=== PATIENT | female | born 1995 | race Caucasian/White ===

== ENCOUNTER 2016-09-03 10:40 | Emergency (ER) | payer SELFPAY ==
[2016-09-03] MEDS ORDERED: CLINDAMYCIN 600 MG/D5W RTU 50 ML IV ONE (11:23)
[2016-09-03] MEDS ORDERED: KETOROLAC TROMETHAMINE INJ/PF 30 MG/1 ML SDV IV ONE (11:25)
[2016-09-03] MEDS ORDERED: DEXAMETHASONE SOD PHOS INJ 10 MG/1 ML VIAL IV ONE (11:25)
[2016-09-03] MEDS ORDERED: ONDANSETRON HCL INJ/PF 4 MG/2 ML SDV IV ONE (11:25)
--- NOTE | 2016-09-03 11:36 | ER Document Report ---
ED ENT - General Chief Complaint: Sore Throat Stated Complaint: THROAT PAIN Notes: 20 yo female with sore throat and fever x 2 days, acute swelling of both tonsils this morning. painful to swallow. + muffled voice TRAVEL OUTSIDE OF THE [place] IN LAST 30 DAYS: No - HPI Patient complains to provider of: Throat problem Onset: Yesterday Onset/Duration: Sudden Quality of pain: Achy, Sharp Pain Level: 4 Location of pain: Throat Associated symptoms: Chills, Difficulty swallowing, Fever, Headache, Sore throat. denies: Drooling, Stiff neck Similar symptoms previously: No Recently seen / treated by doctor: No - Related Data Allergies/Adverse Reactions: No Known Allergies Allergy (Verified 08/25/12 15:06) Past Medical History - General Information source: Patient - Social History Smoking Status: Never Smoker Frequency of alcohol use: None Drug Abuse: None Lives with: Family Family History: Reviewed & Not Pertinent Patient has suicidal ideation: No Patient has homicidal ideation: No - Medical History Medical History: Negative Renal/ Medical History: Denies: Hx Peritoneal Dialysis - Immunizations Immunizations up to date: Yes Hx Diphtheria, Pertussis, Tetanus Vaccination: Yes Review of Systems - Review of Systems Constitutional: Fever EENT: See HPI, Throat pain, Throat swelling Cardiovascular: No symptoms reported Respiratory: No symptoms reported Gastrointestinal: No symptoms reported Genitourinary: No symptoms reported Female Genitourinary: No symptoms reported Musculoskeletal: No symptoms reported Skin: No symptoms reported Hematologic/Lymphatic: No symptoms reported Neurological/Psychological: No symptoms reported Physical Exam - Vital signs Vitals: Temp Pulse Resp BP Pulse Ox 99.4 F 115 H 20 134/65 H 98 09/03/16 11:02 09/03/16 11:02 09/03/16 11:02 09/03/16 11:02 09/03/16 11:02 Interpretation: Normal - General General appearance: Alert In distress: Mild - mildly ill looking - HEENT Head: Normocephalic, Atraumatic Eyes: Normal Pupils: PERRL Tympanic membrane: Normal Mucous membranes: Moist Pharynx: Erythema, Tonsillar hypertrophy, Other - + muffled voice, no drooling. No: Uvular edema Neck: Normal, Lymphadenopathy - tonsillar, Supple - Respiratory Respiratory status: No respiratory distress Chest status: Nontender Breath sounds: Normal Chest palpation: Normal - Cardiovascular Rhythm: Regular Heart sounds: Normal auscultation Murmur: No - Abdominal Inspection: Normal Distension: No distension Bowel sounds: Normal Tenderness: Nontender Organomegaly: No organomegaly - Back Back: Normal, Nontender - Extremities General upper extremity: Normal inspection, Nontender, Normal color, Normal ROM , Normal temperature General lower extremity: Normal inspection, Nontender, Normal color, Normal ROM , Normal temperature, Normal weight bearing. No: Roxy's sign - Neurological Neuro grossly intact: Yes Cognition: Normal Orientation: AAOx4 [place] Coma Scale Eye Opening: Spontaneous [place] Coma Scale Verbal: Oriented [place] Coma Scale Motor: Obeys Commands [place] Coma Scale Total: 15 Speech: Normal Motor strength normal: LUE, RUE, LLE, RLE Sensory: Normal - Psychological Associated symptoms: Normal affect, Normal mood - Skin Skin Temperature: Warm Skin Moisture: Dry Skin Color: Normal Course - Re-evaluation Re-evalutation: 09/03/16 11:43 pt evaluated. + tonsillar hypertrophy touching uvula. + muffled voice. no drooling. able to swallow secretions. will get labs and soft tissue neck. will treat for possible peritonsillar abscess. discussed with Dr Miguel. agrees with plan 09/03/16 13:00 rapid strep negative. mono negative. results reviewed with patient pt reports some improvement of pain after meds. slight improvement noted in tonsillar hypertrophy. no drooling. 09/03/16 13:47 CT showing fairly extensive edema, para pharyngitis on the left. + area of low denisity edema tracking inferiorly from the level of the tonsils. + Fluid at the level of the left aspect of the hyoid arlene probably measuring 2cm. Mild thickening of the left area epiglottic fold. Mild narrowing of the airway just abofe the level of the cords. Results reviewed with Dr Miguel. Pt evaluated by Dr Miguel. Recommend ENT consult. [facility] paged. Pt aware of results and plan. 09/03/16 14:[address] Harrington, ENT, [facility]. Agrees to see patient in office tomorrow for further evaluation. Pt is feeling better, able to talk and swallow. no airway compromise. will discharge home with oral antibiotics, pain medication and strict instructions to follow up with ENT tomorrow as discussed. Discussed disposition with Dr Miguel. Agrees with plan. Told patient to return to ER immediately for any difficulty swallowing or breathing. pt agreeable with plan - Vital Signs Vital signs: Temp Pulse Resp BP Pulse Ox 99.4 F 115 H 20 134/65 H 98 09/03/16 11:02 09/03/16 11:02 09/03/16 11:02 09/03/16 11:02 09/03/16 11:02 - Laboratory Result Diagrams: 09/03/16 11:55 Laboratory results interpreted by me: 09/03/16 11:55 WBC 14.6 H Seg Neutrophils % 83.3 H Lymphocytes % 8.9 L Absolute Neutrophils 12.2 H Discharge - Discharge Clinical Impression: Pharyngitis Qualifiers: Pharyngitis/tonsillitis etiology: other specified organisms Qualified Code(s): J02.8 - Acute pharyngitis due to other specified organisms Condition: Stable Disposition: HOME, SELF-CARE Instructions: Sore Throat ([facility]), Denisha-Tonsillar Abscess ([facility]), Oral Narcotic Medication ([facility]), Antibiotic Therapy ([facility]) Additional Instructions: Your CT is showing swelling of your tonsils with a possible abscess Please call ENT tomorrow to schedule follow up. Office number is [phone] [facility] [address] [place] [address] [id number] Harrington regarding your case. Take your meds as prescribed Return immediately to ER for any difficulty swallowing or breathing
[2016-09-03 12:12] LABS: ABSOLUTE BASOPHILS # (AUTO) 0.1 10^3/uL (0.0-0.2); ABSOLUTE LYMPHOCYTES (AUTO) 1.3 10^3/uL (0.5-4.7); ABSOLUTE MONOCYTES (AUTO) 1.1 10^3/uL (0.1-1.4); ABSOLUTE NEUT (AUTO) 12.2 10^3/uL (1.7-8.2); BASOPHILS % (AUTO) 0.4 % (0-2); EOSINOPHILS % (AUTO) 0.1 % (0-6); HEMATOCRIT 42.4 % (36.0-47.0); HEMOGLOBIN 14.3 g/dL (12.0-15.5); HGB HCT DIFFERENCE 0.5; LYMPHOCYTES % (AUTO) 8.9 % (13-45); MEAN CORPUSCULAR HGB CONC 33.8 g/dL (32.0-36.0); MEAN CORPUSCULAR VOLUME 92 fl (80-97); MONOCYTES % (AUTO) 7.3 % (3-13); RED BLOOD COUNT 4.61 10^6/uL (3.72-5.28); RED CELL DISTRIBUTION WIDTH 12.5 % (11.5-14.0); SEGMENTED NEUTROPHILS % (AUTO) 83.3 % (42-78); WHITE BLOOD COUNT 14.6 10^3/uL (4.0-10.5)
[2016-09-03 15:02] VITALS: BP 125/69
== END 2016-09-03 15:00 | disposition home or self-care (01) ==
LOC: ER 10:40
DX: J02.9 Acute pharyngitis, unspecified (principal); J35.1 Hypertrophy of tonsils; R13.10 Dysphagia, unspecified; R50.9 Fever, unspecified; R51 Headache
CPT/HCPCS: 99283; 96375; 96365; 36415; 87070; 87880; 85025; 81025; 86308; 70491; J1885; J2405; J1100

== ENCOUNTER 2018-02-20 17:37 | Inpatient (IN) | payer SELFPAY ==
[2018-02-20 18:25] LABS: APPEARANCE,URINE SLIGHTLY-CLOUDY; BILIRUBIN,URINE NEGATIVE (NEGATIVE); COLOR,URINE YELLOW; GLUCOSE, URINE NEGATIVE (NEGATIVE); KETONES,URINE NEGATIVE (NEGATIVE); LEUKOCYTE ESTERASE,URINE MODERATE (NEGATIVE); NITRITE,URINE NEGATIVE (NEGATIVE); PROTEIN,URINE NEGATIVE (NEGATIVE); URINE SPECIFIC GRAVITY 1.009; UROBILINOGEN,URINE NEGATIVE mg/dL (<2.0)
[2018-02-20] MEDS ORDERED: EPHEDRINE SULFATE INJ 50 MG/1 ML AMPULE ONE (18:26)
[2018-02-20] MEDS ORDERED: OXYTOCIN 10 UNIT/ML VIAL ONE (18:26)
[2018-02-20] MEDS ORDERED: MISOPROSTOL 0.2 MG TABLET ONE (18:26)
[2018-02-20] MEDS ORDERED: PENICILLIN G-K 5 MILLION UNIT VIAL ONE ×2 (18:27→22:30)
[2018-02-20] MEDS ORDERED: OXYTOCIN/NORMAL SALINE 20 UNIT/1,000 ML RTUINJ ONE (18:27)
[2018-02-20] MEDS ORDERED: FENTANYL/BUPIVACAINE/NS/PF 300 MCG/150 ML RTUINJ EPI ONE (18:27)
[2018-02-20] MEDS ORDERED: LIDOCAINE 1% INJ-PF (10 MG/ML) 30 ML SDV ONE (18:27)
[2018-02-20 18:37] LABS: ABSOLUTE EOSINOPHILS # (AUTO) 0.1 10^3/uL (0.0-0.6); ABSOLUTE LYMPHOCYTES (AUTO) 2.1 10^3/uL (0.5-4.7); ABSOLUTE MONOCYTES (AUTO) 0.7 10^3/uL (0.1-1.4); ABSOLUTE NEUT (AUTO) 5.5 10^3/uL (1.7-8.2); BASOPHILS % (AUTO) 0.4 % (0-2); EOSINOPHILS % (AUTO) 1.1 % (0-6); HEMATOCRIT 32.6 % (36.0-47.0); HEMOGLOBIN 10.8 g/dL (12.0-15.5); LYMPHOCYTES % (AUTO) 24.9 % (13-45); MEAN CORPUSCULAR HEMOGLOBIN 29.1 pg (27.0-33.4); MEAN CORPUSCULAR VOLUME 88 fl (80-97); MONOCYTES % (AUTO) 8.7 % (3-13); PLATELET COUNT 217 10^3/uL (150-450); RED BLOOD COUNT 3.69 10^6/uL (3.72-5.28); RED CELL DISTRIBUTION WIDTH 14.9 % (11.5-14.0); SEGMENTED NEUTROPHILS % (AUTO) 64.9 % (42-78); TOTAL CELLS COUNTED % (AUTO) 100 %; WHITE BLOOD COUNT 8.4 10^3/uL (4.0-10.5)
[2018-02-20] MEDS ORDERED: BUPIVACAINE HCL 0.5 % INJ/PF 30 ML SDV ONE (18:37)
[2018-02-20 18:47] LABS: URINE AMPHETAMINES SCREEN NEGATIVE; URINE BARBITURATES SCREEN NEGATIVE; URINE BENZODIAZEPINES SCREEN NEGATIVE; URINE COCAINE SCREEN NEGATIVE; URINE MARIJUANA (THC) SCREEN NEGATIVE; URINE METHADONE SCREEN NEGATIVE; URINE PHENCYCLIDINE SCREEN NEGATIVE
[2018-02-20 20:11] LABS: RUBELLA INTERPRETATION POSITIVE
[2018-02-20 20:29] LABS: CHLAM PCR NOT DETECTED (NOT DETECT); GON PCR NOT DETECTED (NOT DETECT)
[2018-02-20] MEDS ORDERED: OXYTOCIN/NORMAL SALINE 20 UNIT/1,000 ML RTUINJ IV PRN (21:40)
--- NOTE | 2018-02-20 22:19 | Admission Physical ---
Datetime Report Generated by CPN: 02/20/2018 22:19 CURRENT ADMISSION Chief Complaint: Uterine Contractions Indication for Induction: Not Applicable Admit Impression : Term, Intrauterine Admit Plan: Initiate Labor Protocol ALLERGIES Medication Allergies: No Medication Allergies: No Known Allergies (08/25/2012) Latex: No Latex Allergies OBSTETRICAL HISTORY EDC: 02/20/2018 00:00 : 1 Para: 0 Term: 0 : 0 SAB: 0 IAB: 0 Ectopic: 0 Livin Cesareans: 0 VBACs: 0 Multiple Births: 0 Gestational Diabetes: No Rh Sensitization: No Incompetent Cervix: No MAHIN: No Infertility: No ART Treatment: No Uterine Anomaly: No IUGR: No Hx Previous C/S: No Macrosomia: No Hx Loss/Stillborn: No PIH: No Hx : No Placenta Previa/Abruption: No Depression/PP Depression: Yes PTL/PROM: No Post Hemorrhage: No Obstetrical History Comments: G1- current SEE RECORDS Alcohol: No Marijuana : No Cocaine: No Other Illicit Drugs: No Cigarettes: Never Smoker. [id number] MEDICAL HISTORY Diabetes: No Blood Transfusion: No Pulmonary Disease (Asthma, TB): No Breast Disease: No Hypertension: No Classified Ad Clerk Surgery: No Heart Disease: No Hosp/Surgery: Yes Autoimmune Disorder: No Anesthetic Complications: No Kidney Disease: No Abnormal Pap Smear: No Neuro/Epilepsy: No Psychiatric Disorders: Yes Other Medical Diseases: No Hepatitis/Liver Disease: No Significant Family History: No Varicosities/Phlebitis: No Trauma/Violence : No Thyroid Dysfunction: No Medical History Comments: attepted suicide 2016 INFECTIOUS HISTORY Gonorrhea: No Genital Herpes: No Chlamydia: No Tuberculosis: No Syphilis: No Hepatitis: No HIV/AIDS Exposure: No Rash or Viral Illness: No HPV: No PHYSICAL EXAM General: Normal HEENT: Normal Neurologic: Normal Thyroid: Normal Heart: Normal Lungs: Normal Breast: Deferred Back: Normal Abdomen: Normal Genitourinary Exam: Normal Extremities: Normal DTRs: Normal Pelvic Type: Adequate VAGINAL EXAM Dilatation: 5cm FETUS A EGA: 40.0 PLANS FOR LABOR AND DELIVERY Labor and Delivery: None Pain Management: Epidural Feeding Preference: Both Benefit of Breast Feed Discussed: Yes Circumcision: N/A INFORMED CONSENT Signature: with User ID: [email or web address]
[2018-02-21] MEDS ORDERED: NA PHOS,M-B/NA PHOS,DI-BA (ADULT) 133 ML ENEMA PR PRN (00:37)
[2018-02-21] MEDS ORDERED: DIBUCAINE 1% OINTMENT 28 GM TP PRN (00:37)
[2018-02-21] MEDS ORDERED: DIPHENHYDRAMINE HCL 25 MG CAPSULE PO PRN (00:37)
[2018-02-21] MEDS ORDERED: ACETAMINOPHEN WITH CODEINE #3 TABLET PO PRN ×2 (00:37→15:54)
[2018-02-21] MEDS ORDERED: MEASLES,MUMPS&RUBELLA VACC/PF 0.5 ML VIAL SUBCUT PRN ×2 (00:37→13:30)
[2018-02-21] MEDS ORDERED: ACETAMINOPHEN 650 MG SUPP.RECT PR PRN (00:37)
[2018-02-21] MEDS ORDERED: PROMETHAZINE HCL INJ 25 MG/1 ML VIAL IV PRN ×2 (00:37→13:30)
[2018-02-21] MEDS ORDERED: MAGNESIUM HYDROXIDE SUSP 30 ML UDCUP PO PRN (00:37)
[2018-02-21] MEDS ORDERED: BENZOCAINE/MENTHOL AEROSOL SPRAY 56 ML TOP PRN (00:37)
[2018-02-21] MEDS ORDERED: GLYCERIN/WITCH HAZEL LEAF 1 EACH MED..PAD TP PRN (00:37)
[2018-02-21] MEDS ORDERED: DIPH/PERTUSS(ACELL)/TETANUS VAC/PF 0.5 ML SYR (>=10YO) IM PRN ×2 (00:37→13:30)
[2018-02-21] MEDS ORDERED: PROMETHAZINE HCL 25 MG TABLET PO PRN (00:37)
[2018-02-21] MEDS ORDERED: OXYTOCIN/NORMAL SALINE 20 UNIT/1,000 ML RTUINJ IV PRN (00:37)
[2018-02-21] MEDS ORDERED: ZOLPIDEM TARTRATE 5 MG TABLET PO PRN (00:37)
[2018-02-21] MEDS ORDERED: PSEUDOEPHEDRINE HCL 30 MG TABLET PO PRN (00:37)
[2018-02-21] MEDS ORDERED: PROMETHAZINE HCL 25 MG SUPP.RECT PR PRN (00:37)
--- NOTE | 2018-02-21 03:15 | Delivery Summary ---
Del Sum A-C Datetime Report Generated by CPN: 02/21/2018 03:14 DELIVERY PERSONNEL DELIVERY PERSONNEL: [id number] Delivery Doctor:: Ruben Perez MD Labor and Delivery Nurse:: Carolyn Carlson RN Labor and Delivery Nurse:: Kasandra Mosley RN Nursery Nurse:: Florecita Villatoro RN Additional Personnel: : Margoth Jones RN MATERNAL INFORMATION Delivery Anesthesia: Epidural Medications After Delivery: Pitocin Drip 20 Units/1000ml NSS Maternal Complications: None LABOR SUMMARY EDC: 02/20/2018 00:00 No. Babies in Womb: 0 Attempted: No Labor Anesthesia: Epidural LABOR INFORMATION Reason for Induction: Not Applicable Onset of Labor: 02/20/2018 18:43 Complete Dilatation: 02/21/2018 00:07 Oxytocin: Augmentation Group B Beta Strep: unknown Antibiotics # of Doses: 2 Name of Antibiotic Given: Penicilin Steroids Given: None Reason Steroids Not Administered: Not Applicable MEMBRANES Membranes Rupture Method: Artificial Rupture of Membranes: 02/20/2018 22:22 Length of Rupture (hr): 2.08 Amniotic Fluid Color: Clear Amniotic Fluid Amount: Small Amniotic Fluid Odor: Normal STAGES OF LABOR Stage 1 hr: 5 Stage 1 min: 24 Stage 2 hr: 0 Stage 2 min: 20 Stage 3 hr: 0 Stage 3 min: 3 Total Time in Labor hr: 5 Total Time in Labor min: 47 VAGINAL DELIVERY Episiotomy: None Laceration #1: Vaginal Laceration Extension #1: N/A Laceration Repair: Yes Laceration Repair Note: right side wall tear Sponge Count Correct: N/A CSECTION DELIVERY Primary Indication: N/A BABY A INFORMATION Delivery Date/Time: 02/21/2018 00:27 Method of Delivery: Vaginal Born in Route : No : N/A Forceps: N/A Vacuum Extraction: N/A Shoulder Dystocia : No PRESENTATION/POSITION BABY A Presentation: Cephalic Cephalic Presentation: Vertex Vertex Position: Right Occipital Anterior Breech Presentation: N/A PLACENTA INFORMATION BABY A Placenta Delivery Time : 02/21/2018 00:30 Placenta Method of Delivery: Spontaneous Placenta Status: Delivered SCORES BABY A Heart Rate 1 min: >100 bpm Resp Effort 1 min: Good Cry Reflex Irritability 1 min: Cough or Sneeze or Pulls Away Muscle Tone 1 min: Some Flexion of Extremities Color 1 min: Blue/Pale Resuscitation Effort 1 min: Tactile Stimulation SCORE 1 MIN: 7 Heart Rate 5 min: >100 bpm Resp Effort 5 min: Good Cry Reflex Irritability 5 min: Cough or Sneeze or Pulls Away Muscle Tone 5 min: Active Motion Color 5 min: Body [place], Extremities Blue Resuscitation Effort 5 min: Tactile Stimulation SCORE 5 MIN: 9 INFANT INFORMATION BABY A Gestational Age at Delivery: 40.1 Gestational Status: Full Term- 39- 40.6 Weeks Outcome : Liveborn Infant Condition : Stable Infant Sex: Female IDENTIFICATION BABY A Verification Date/Time: 02/21/2018 00:44 ID Band Number: [id number] Mother's Name Verified: Yes RN Verifying : Latasha Carlson, RN Loco Mosley, RN WEIGHT/LENGTH BABY A Infant Birthweight (gm): 3030 Weight (lb): 6 Infant Weight (oz): 11 Length (in): 19.50 Length (cm): 49.53 CORD INFORMATION BABY A No. Cord Vessels: 3 Nuchal Cord : Around Neck x1, Loose Cord Blood Taken: Yes-For Eval (Mom's Blood Type - or O+) Infant Suction: None ASSESSMENT BABY A Complications: None Physical Findings at Delivery: Within Normal Limits Respirations: Appears Normal Skin to Skin: Yes Transferred To: Nursery BABY B INFORMATION : N/A SIGNATURES Signature: with User ID: [email or web address]
[2018-02-21] MEDS: PENICILLIN G-K 5 MILLION UNIT VIAL IV SCH ×3 (05:48→10:38)
[2018-02-21] MEDS: IBUPROFEN 800 MG TABLET PO SCH ×3 (05:50→22:53)
[2018-02-21] MEDS ORDERED: MISOPROSTOL 0.2 MG TABLET ONE (08:59)
[2018-02-21] MEDS ORDERED: OXYTOCIN/NORMAL SALINE 20 UNIT/1,000 ML RTUINJ ONE (09:20)
--- NOTE | 2018-02-21 09:49 | PDOC PROGRESS REPORT ---
Subjective-OB Progress Note for:: 02/21/18 Physical Exam (OB) Vital Signs: Temp Pulse Resp BP Pulse Ox 98.2 F 64 18 134/78 H 99 02/21/18 02:44 02/21/18 02:44 02/21/18 02:44 02/21/18 02:44 02/21/18 02:44 Intake & Output 02/20/18 02/21/18 02/22/18 06:59 06:59 06:59 Weight 59.8 kg - PIH/Pre-Eclampsia DTR's: 1 + Clonus: Negative Headache: Absent Epigastric Pain: No Visual Changes: No - Lochia Lochia Amount: Small 10-25 ml Lochia Color: Rubra/Red - Abdomen Description: Soft, Round Hernia Present: No Bowel Sounds: Normoactive Flatus Presence: Present Stool: No Fundal Description: Firm, Midline Fundal Height: u/u - u/2 Objective-Diagnostic Laboratory: 02/20/18 18:26 02/20/18 02/20/18 02/20/18 17:55 18:26 18:26 WBC 8.4 RBC 3.69 L Hgb 10.8 L Hct 32.6 L MCV 88 MCH 29.1 MCHC 33.0 RDW 14.9 H Plt Count 217 Seg Neutrophils % 64.9 Lymphocytes % 24.9 Monocytes % 8.7 Eosinophils % 1.1 Basophils % 0.4 Absolute Neutrophils 5.5 Absolute Lymphocytes 2.1 Absolute Monocytes 0.7 Absolute Eosinophils 0.1 Absolute Basophils 0.0 Urine Color YELLOW Urine Appearance SLIGHTLY-CLOUDY Urine pH 8.0 Ur Specific [place] 1.009 Urine Protein NEGATIVE Urine Glucose (UA) NEGATIVE Urine Ketones NEGATIVE Urine Blood NEGATIVE Urine Nitrite NEGATIVE Ur Leukocyte Esterase MODERATE H Blood Type O POSITIVE Antibody Screen NEGATIVE
[2018-02-21 10:18] LABS: HEMATOCRIT 30.4 % (36.0-47.0); HEMOGLOBIN 10.4 g/dL (12.0-15.5); MEAN CORPUSCULAR HEMOGLOBIN 29.8 pg (27.0-33.4); MEAN CORPUSCULAR HGB CONC 34.2 g/dL (32.0-36.0); MEAN CORPUSCULAR VOLUME 87 fl (80-97); PLATELET COUNT 192 10^3/uL (150-450); RED BLOOD COUNT 3.48 10^6/uL (3.72-5.28); RED CELL DISTRIBUTION WIDTH 15.3 % (11.5-14.0); WHITE BLOOD COUNT 13.7 10^3/uL (4.0-10.5)
[2018-02-21] MEDS: DOCUSATE SODIUM 100 MG CAPSULE PO SCH ×2 (10:41→17:26)
[2018-02-21] MEDS: FERROUS SULFATE 325 MG TABLET PO SCH ×2 (10:41→17:26)
[2018-02-21] MEDS: SENNOSIDES/DOCUSATE 8.6-50 MG 1 EACH TABLET PO SCH (10:42)
[2018-02-21] MEDS: FAMOTIDINE 20 MG TABLET PO SCH ×2 (10:42→22:54)
[2018-02-21] MEDS: PRENATAL VITAMIN W DHA CAPSULE PO SCH (10:42)
[2018-02-21] MEDS ORDERED: FENTANYL CITRATE INJ/PF 100 MCG/2 ML AMPUL ONE (12:16)
[2018-02-21] MEDS ORDERED: PROPOFOL INJ 200 MG/20 ML VIAL IV ONE (12:16)
[2018-02-21] MEDS ORDERED: MIDAZOLAM 2 MG/2 ML INJ ONE (12:17)
[2018-02-21] MEDS ORDERED: LIDOCAINE 2% INJ-PF (20 MG/ML) 10 ML AMPUL ONE (12:40)
[2018-02-21] MEDS ORDERED: CEFAZOLIN INJ 1 GM VIAL ONE (12:51)
[2018-02-21] MEDS ORDERED: KETAMINE HCL INJ 500 MG/10 ML VIAL ONE (13:00)
[2018-02-21] MEDS ORDERED: HYDROMORPHONE HCL INJ/PF 2 MG/ML AMPULE IV PRN (13:02)
--- NOTE | 2018-02-21 13:05 | Operative Report ---
Operative Report DATE OF SURGERY: 02/21/18 PREOPERATIVE DIAGNOSIS: hemorrhage, Right labial laceration POSTOPERATIVE DIAGNOSIS: STEPHANY - suspect ruptured right labial hematoma OPERATION: Right labial laceration hematoma removal and laceration repair SURGEON: CHRISOTPHER RINCON ANESTHESIA: Moderate Sedation TISSUE REMOVED OR ALTERED: None COMPLICATIONS: None ESTIMATED BLOOD LOSS: 10ml intraoperative INTRAOPERATIVE FINDINGS: approximately 300ml of clot removed from right labia and vaginal vault. still with some active bleeding from multiple small blood vessels in right labia. appears that right vaginal sidewall laceration is intact with repair and possibly hematoma extended from under right vaginal sidewall and exited right labia causing deep labial laceration. After repair no evidence of reaccumulation of blood clot. Good hemostasis PROCEDURE: Anesthesia provider: [Trinity Puentes CRNA] Urine output: [void prior to OR] IV fluids: [500ml] Indications: [22yo PPD#0 from vaginal delivery with right vaginal sidewall laceration who was evaluated on the floor now more than 10 hours after delivery with continued bleeding. On exam large open defect in right labia with large clot in place. Patient was unable to tolerate exam due to discomfort therefore she was consented for evaluation in the operating room. The site was packed and she was prepped for the OR. The risks/benefits/alternatives reviewed. Procedure: The patient was taken to the operative suite and sedation was achieved and then she was prepped and draped in the usual fashion for vaginal laceration repair. She was placed in stirrups. At this time the packing and clot were removed and 10ml of Lidocaine 1% was injected at the site for additional analgesia. Site of continued bleeding noted in right labial defect. Based on examination under anesthesia and appearance of clot and wound it appears that a hematoma formed extending from vaginal sidewall laceration ( which had already been repaired at delivery) and proceeded to cause severe distension of the right labia causing labia to open. Hemostasis in the right labial laceration was achieved with cautery and a 3 layered closure with 2 -0 chromic and 3 -0 vicryl suture. This achieved both cosmesis and hemostasis completing the procedure. 2 Grams of Ancef given intraoperatively. Sponge, lap and needle counts were correct x 2. She was taken to the recovery area awake and in stable condition.]
--- NOTE | 2018-02-21 13:08 | Warning Signs in Babies ---
VOD Warning Signs Datetime Report Generated by [facility]: 02/21/2018 13:08 VOD#608 -Warning Signs in Babies: Viewed with Parent(s)/Family (02/20/2018 18:11:Carolyn Carlson RN)
[2018-02-21] MEDS ORDERED: ACETAMINOPHEN WITH CODEINE #3 TABLET ONE ×2 (16:03)
[2018-02-22] MEDS: IBUPROFEN 800 MG TABLET PO SCH ×3 (06:17→21:59)
[2018-02-22 07:36] LABS: HEMATOCRIT 27.5 % (36.0-47.0); HEMOGLOBIN 9.3 g/dL (12.0-15.5); MEAN CORPUSCULAR HEMOGLOBIN 29.6 pg (27.0-33.4); MEAN CORPUSCULAR HGB CONC 33.9 g/dL (32.0-36.0); MEAN CORPUSCULAR VOLUME 87 fl (80-97); PLATELET COUNT 200 10^3/uL (150-450); RED BLOOD COUNT 3.15 10^6/uL (3.72-5.28); RED CELL DISTRIBUTION WIDTH 15.2 % (11.5-14.0); WHITE BLOOD COUNT 11.8 10^3/uL (4.0-10.5)
[2018-02-22 07:40] LABS: HEPATITIS C VIRUS AB <0.1 s/co ratio (0.0-0.9)
[2018-02-22] MEDS: SENNOSIDES/DOCUSATE 8.6-50 MG 1 EACH TABLET PO SCH (09:13)
[2018-02-22] MEDS: PRENATAL VITAMIN W DHA CAPSULE PO SCH (09:13)
[2018-02-22] MEDS: FERROUS SULFATE 325 MG TABLET PO SCH ×2 (09:13→18:30)
[2018-02-22] MEDS: FAMOTIDINE 20 MG TABLET PO SCH ×2 (09:13→22:00)
[2018-02-22] MEDS: DOCUSATE SODIUM 100 MG CAPSULE PO SCH ×2 (09:13→18:30)
--- NOTE | 2018-02-22 09:22 | PDOC PROGRESS REPORT ---
Subjective-OB Progress Note for:: 02/22/18 Subjective: pt has some soreness but states she is doing well Physical Exam (OB) Vital Signs: Temp Pulse Resp BP Pulse Ox 97.7 F 57 L 18 113/71 100 02/22/18 08:20 02/22/18 08:20 02/22/18 08:20 02/22/18 08:20 02/22/18 08:20 Intake & Output 02/21/18 02/22/18 02/23/18 06:59 06:59 06:59 Intake Total 200 Balance 200 Weight 59.8 kg - General General Appearance: Appears well, Alert - PIH/Pre-Eclampsia DTR's: 1 + Clonus: Negative Headache: Absent Epigastric Pain: No Visual Changes: No - Lochia Lochia Amount: Scant < 10 ml Lochia Color: Rubra/Red - Abdomen Description: Tender, Soft, Flat Hernia Present: No Bowel Sounds: Normoactive Flatus Presence: Present Fundal Description: Firm, Midline Fundal Height: u/u - u/2 - Genitourinary Female External exam: Laceration, Bruising Lochia: Mild - Extremities Calf: Nontender Objective-Diagnostic Laboratory: 02/22/18 07:23 02/21/18 02/22/18 09:59 07:23 WBC 13.7 H 11.8 H RBC 3.48 L 3.15 L Hgb 10.4 L 9.3 L Hct 30.4 L 27.5 L MCV 87 87 MCH 29.8 29.6 MCHC 34.2 33.9 RDW 15.3 H 15.2 H Plt Count 192 200 Assessment and Plan(PN) - Assessment and Plan (1) Delivery normal Is this a current diagnosis for this admission?: Yes (2) Hematoma of labia majora Is this a current diagnosis for this admission?: Yes (3) Insufficient antepartum care Is this a current diagnosis for this admission?: Yes (4) Vaginal hematoma Is this a current diagnosis for this admission?: Yes - Time Spent with Patient Time with patient: 15-25 minutes - Disposition Anticipated Discharge: Home Within: within 24 hours
[2018-02-22 15:33] LABS: HEPATITS B SURFACE ANTIGEN Negative (Negative)
[2018-02-23] MEDS: IBUPROFEN 800 MG TABLET PO SCH (05:37)
--- NOTE | 2018-02-23 09:32 | PDOC PROGRESS REPORT ---
Subjective-OB Progress Note for:: 02/23/18 Subjective: Doing well, ready to go home, family at BS, no signs of depression, breast and bottle Physical Exam (OB) Vital Signs: Temp Pulse Resp BP Pulse Ox 97.7 F 59 L 18 108/58 L 98 02/23/18 08:11 02/23/18 08:11 02/23/18 08:11 02/23/18 08:11 02/23/18 08:11 Intake & Output 02/22/18 02/23/18 02/24/18 06:59 06:59 06:59 Intake Total 200 Balance 200 - PIH/Pre-Eclampsia DTR's: 1 + Clonus: Negative Headache: Absent Epigastric Pain: No Visual Changes: No - Lochia Lochia Amount: Scant < 10 ml Lochia Color: Rubra/Red - Abdomen Description: Tender, Soft Hernia Present: No Fundal Description: Firm, Midline Fundal Height: u/u - u/2 Objective-Diagnostic Laboratory: 02/22/18 07:23 02/20/18 18:39 Vaginal/Anorectal Group B Streptococcus Culture - Final NO GROUP B STREPTOCOCCUS RECOVERED Assessment and Plan(PN) - Assessment and Plan (1) Delivery normal Is this a current diagnosis for this admission?: Yes (2) Depression Qualifiers: Depression Type: unspecified Qualified Code(s): F32.9 - Major depressive disorder, single episode, unspecified Is this a current diagnosis for this admission?: No (3) Hematoma of labia majora Is this a current diagnosis for this admission?: Yes (4) Insufficient antepartum care Is this a current diagnosis for this admission?: Yes (5) Suicide attempt Is this a current diagnosis for this admission?: No - Time Spent with Patient Time with patient: Less than 15 minutes - Disposition Anticipated Discharge: Home Within: Other - home today, does not feel depressed, discussed S&S to report
--- NOTE | 2018-02-23 09:37 | PDOC DISCHARGE SUMMARY ---
Final Diagnosis Discharge Date: 02/23/18 - Final Diagnosis (1) Delivery normal Is this a current diagnosis for this admission?: Yes (2) Depression Is this a current diagnosis for this admission?: Yes (3) Hematoma of labia majora Is this a current diagnosis for this admission?: Yes (4) Insufficient antepartum care Is this a current diagnosis for this admission?: Yes (5) Suicide attempt Is this a current diagnosis for this admission?: Yes Discharge Data - Discharge Medication Prescriptions: Ferrous Sulfate [Feosol 325 mg Tablet] 325 mg PO BID #60 tablet Vit/Dha [ Multi + Dha Capsule] 1 cap PO DAILY #30 capsule Home Medications: Ferrous Sulfate [Feosol 325 mg Tablet] 325 mg PO BID #60 tablet 02/23/18 Vit/Dha [ Multi + Dha Capsule] 1 cap PO DAILY #30 capsule 02/23 Gestational Age: 40.1 Reason(s) for Admission: Onset of Labor Admission Note: ROM, augmentation Procedures: NST, Ultrasound Intrapartum Procedure(s): Spontaneous Vaginal Delivery Complication(s): Laceration-Sulcus Laceration-Degree: 1st - Data Baby 1 Female Home with Mother: Yes Complications: No - Diagnosis Test Laboratory: Temp Pulse Resp BP Pulse Ox 97.7 F 59 L 18 108/58 L 98 02/23/18 08:11 02/23/18 08:11 02/23/18 08:11 02/23/18 08:11 02/23/18 08:11 02/20/18 02/20/18 02/21/18 17:55 18:26 09:59 RBC 3.69 L 3.48 L Hgb 10.8 L 10.4 L Hct 32.6 L 30.4 L Urine Opiates Screen NEGATIVE 02/22/18 07:23 RBC 3.15 L Hgb 9.3 L Hct 27.5 L Urine Opiates Screen - Discharge information/Instructions Discharge Activity: Activity As Tolerated, No Lifting Over 10 Pounds, Pelvic Rest Discharge Diet: As Tolerated, Regular Disposition: HOME, SELF-CARE Follow up with: [facility] in: 2, Weeks - reviewed S&S to report
[2018-02-23] MEDS: DOCUSATE SODIUM 100 MG CAPSULE PO SCH (09:41)
[2018-02-23] MEDS: FAMOTIDINE 20 MG TABLET PO SCH (09:42)
[2018-02-23] MEDS: PRENATAL VITAMIN W DHA CAPSULE PO SCH (09:42)
[2018-02-23] MEDS: SENNOSIDES/DOCUSATE 8.6-50 MG 1 EACH TABLET PO SCH (09:42)
[2018-02-23] MEDS: FERROUS SULFATE 325 MG TABLET PO SCH (09:42)
[2018-02-23 11:28] VITALS: BP 113/71
== END 2018-02-23 13:02 | disposition home or self-care (01) | DRG 775 ==
LOC: LC 17:37 → LR 18:10 → 2S 02-21 02:36
PROVIDERS: ADMIT Obstetrics & Gynecology Gynecology; ATTEND Obstetrics & Gynecology Gynecology
PROC: 0KQM0ZZ Repair Perineum Muscle, Open Approach (ICD-10-PCS; 2018-02-21)
PROC: 4A1HXCZ Monitoring of Products of Conception, Cardiac Rate, External Approach (ICD-10-PCS; 2018-02-21)
PROC: 0UCMXZZ Extirpation of Matter from Vulva, External Approach (ICD-10-PCS; 2018-02-21)
PROC: 0HQ9XZZ Repair Perineum Skin, External Approach (ICD-10-PCS; 2018-02-21)
PROC: 10E0XZZ Delivery of Products of Conception, External Approach (ICD-10-PCS; principal; 2018-02-21 12:30)
DX: O69.81X0 Labor and delivery complicated by cord around neck, without compression, not applicable or unspecified (principal); O71.7 Obstetric hematoma of pelvis; O70.1 Second degree perineal laceration during delivery; O70.0 First degree perineal laceration during delivery; O99.344 Other mental disorders complicating childbirth; F32.9 Major depressive disorder, single episode, unspecified; Z37.0 Single live birth; Z3A.40 40 weeks gestation of pregnancy; Z91.5 Personal history of self-harm; Z87.898 Personal history of other specified conditions
CPT/HCPCS: 36415; 80307; 81005; 85025; 85027; 86592; 86701; 86762; 86803; 86804; 86850; 86900; 86901; 87081; 87340; 87491; 87591; 940; 94760; J0690; J2250; J2540; J2590; J2704; J3010; J3490

== ENCOUNTER 2018-03-23 21:07 | Emergency (ER) | payer MEDICAID ==
[2018-03-23 21:16] VITALS: BP 121/71
--- NOTE | 2018-03-23 21:58 | ER Document Report ---
HPI - HPI Patient complains to provider of: vaginal pain Onset: Other - 2 days ago Onset/Duration: Sudden Quality of pain: Sharp Severity: Mild Pain Level: 1 Context: 22-year-old female presents to ED for complaint of tenderness to the vaginal area. She states on the right labia she had stitches after the surgery and she reached down and scratched her right labia night before last and caught a suture in her fingernail pulling it out. She states she has had some intermittent bleeding to the area since then. There is no redness no swelling and she is able to walk with a even steady gait. Patient just wanted to make sure it did not need to be resutured. Patient's delivery was on 02/21/2018. She states she saw her [facility] 03/20/2018 and has a appointment with ROCHELLE ABAD on Sunday. She states she was just making sure that there was no problems with her surgical site. States she is still having some pressure when she urinates but no burning frequency or urgency. Associated Symptoms: Other Exacerbated by: Movement, Walking Relieved by: Denies Similar symptoms previously: Yes Recently seen / treated by doctor: Yes - ROS ROS below otherwise negative: Yes - CONSTITUTIONAL Constitutional: DENIES: Fever, Chills - EENT EENT: DENIES: Sore Throat, Ear Pain, Nasal Drainage-Clear, Nasal Drainage- Purulent, Congestion, Eye problems - NEURO Neurology: DENIES: Headache, Weakness, Vision blurred, Dizzinesss / Vertigo - CARDIOVASCULAR Cardiovascular: DENIES: Chest pain - RESPIRATORY Respiratory: DENIES: Trouble Breathing, Coughing - GASTROINTESTINAL Gastrointestinal: DENIES: Abdominal Pain, Nausea, Patient vomiting, Diarrhea, Constipation, Black / Bloody Stools - URINARY Urinary: DENIES: Dysuria, Urgency, Frequency - REPRODUCTIVE Reproductive: DENIES: : Notes: Small laceration to the right labia from her delivery of her child. She states that she had sutures in this area and she scratched and pulled out 1 of the sutures that was dissolving. She stated has bled since then and she was just concerned and needed to get it evaluated. - MUSCULOSKELETAL Musculoskeletal: DENIES: Extremity pain, Back Pain, Neck Pain, Swelling - DERM Skin Color: Normal Skin Problems: Laceration Past Medical History - General Information source: Patient - Social History Smoking Status: Never Smoker Cigarette use (# per day): No Chew tobacco use (# tins/day): No Smoking Education Provided: No Frequency of alcohol use: None Drug Abuse: None Family History: Reviewed & Not Pertinent Patient has suicidal ideation: No Patient has homicidal ideation: No - Past Medical History Cardiac Medical History: Reports: None Pulmonary Medical History: Reports: None EENT Medical History: Reports: None Neurological Medical History: Reports: None Endocrine Medical History: Reports: None Renal/ Medical History: Reports: None Malignancy Medical History: Reports: None GI Medical History: Reports: None Musculoskeletal Medical History: Reports None Skin Medical History: Reports None Psychiatric Medical History: Reports: None Traumatic Medical History: Reports: None Infectious Medical History: Reports: None Surgical Hx: Negative - Immunizations Immunizations up to date: Yes Hx Diphtheria, Pertussis, Tetanus Vaccination: Yes Vertical Provider Document - CONSTITUTIONAL Agree With Documented VS: Yes Exam Limitations: negative: No Limitations, Clinical Condition, Intoxication, Language Barrier, Physical Impairment, Other General Appearance: negative: WD/WN, No Apparent Distress, Mild Distress, Moderate Distress, Severe Distress, Cachetic, Obese, Thin, Other - INFECTION CONTROL TRAVEL OUTSIDE OF THE [place] IN LAST 30 DAYS: No - HEENT HEENT: Atraumatic, Normal ENT Exam, Normocephalic, PERRLA - NECK Neck: Normal Inspection - RESPIRATORY Respiratory: Breath Sounds Normal, No Respiratory Distress - CARDIOVASCULAR Cardiovascular: Regular Rate, Regular Rhythm - REPRODUCTIVE Notes: Small tear to the right inner labia from vaginal delivery. Patient states there was a suture there that was dissolving and she caught it with her fingernail ripped and the suture out. She states she has had intermittent bleeding since then. No signs or symptoms of any infection. No signs or symptoms of swelling or inflammation. - MUSCULOSKELETAL/EXTREMETIES Musculoskeletal/Extremeties: MAEW, FROM, Tender - NEURO Level of Consciousness: Awake, Alert Course - Re-evaluation Re-evalutation: 03/23/18 21:59 Patient encouraged to continue using her mary-bottle to clean the area. Patient encouraged to call [facility] on Sunday and follow-up with them she continues to have any bleeding in this area. - Vital Signs Vital signs: Temp Pulse Resp BP Pulse Ox 98.0 F 81 18 121/71 99 03/23/18 21:14 03/23/18 21:14 03/23/18 21:14 03/23/18 21:14 03/23/18 21:14 Discharge - Discharge Clinical Impression: Small laceration in her right labia Condition: Stable Disposition: HOME, SELF-CARE Additional Instructions: NON-SUTURED LACERATION: Your laceration did not require suturing. Some lacerations cannot be sutured because of increased infection risk, while others simply don't need stitches because they are shallow or very short. Your injury should be protected while it heals. Usually complete healing takes 10 to 14 days. Keep the dressing clean and dry, and change it every day. If you notice increasing pain, redness, swelling, drainage, or tender lumps in the armpit or groin above the injury, infection may be present. You should call the doctor at once. Continue using your mary-bottle to clean the area frequently. Please call your [facility] on Sunday to schedule a follow-up appointment. Also follow-up with your primary doctor as scheduled. FOLLOW-UP CARE: Please return in __3-5___ days for an infection check. If you have been referred to another physician for follow-up care, call that physicians office for an appointment as you were instructed. If you experience a significant change in your laceration, or if you are concerned there may be an infection (swelling, redness, drainage, increasing tenderness, red streaks, tender lumps in the armpit or groin above the laceration, or fever) , return to the Emergency Department immediately re-evaluation. Referrals: MAGGI BRADEN MD [ACTIVE STAFF] - Follow up in 3-5 days
== END 2018-03-23 22:05 | disposition home or self-care (01) ==
LOC: ER 21:07
DX: O90.1 Disruption of perineal obstetric wound (principal)
CPT/HCPCS: 99283

== ENCOUNTER 2018-05-01 15:45 | Emergency (ER) | payer MEDICAID ==
[2018-05-01 17:04] LABS: A TYPE INFLUENZA AG NEGATIVE (NEGATIVE); B INFLUENZA AG NEGATIVE (NEGATIVE)
--- NOTE | 2018-05-01 18:19 | ER Document Report ---
ED Flu Like - General Chief Complaint: Flu Symptoms Stated Complaint: FLU SYMPTOMS Time Seen by Provider: 05/01/18 16:10 Mode of Arrival: Ambulatory Information source: Patient Notes: Chief complaint: Flulike symptoms History of complain:( obtained from----patient) 22 years old female presents today with generalized body aches and pain, feverish. No documented temperature. No nausea vomiting diarrhea dysuria frequency urgency. Onset: As above Duration: Since this morning Severity: Mild Quality: As above Context: As above Exacerbating factor and relieving factors: As above REVIEW OF SYSTEMS: CONSTITUTIONAL : Denies fever, chills, or sweats. Denies recent illness. EENT: Denies eye, ear, throat, or mouth pain or symptoms. Denies nasal or sinus congestion or discharge. Denies throat, tongue, or mouth swelling or difficulty swallowing. CARDIOVASCULAR: Denies chest pain. Denies palpitations or racing or irregular heart beat. Denies ankle edema. RESPIRATORY: Denies cough, cold, or chest congestion. Denies shortness of breath, difficulty breathing, or wheezing. GASTROINTESTINAL: Denies distention. Denies nausea, vomiting, or diarrhea. Denies blood in vomitus, stools, or per rectum. Denies black, tarry stools. Denies constipation. GENITOURINARY: Denies difficulty urinating, painful urination, burning, frequency, blood in urine, or discharge. FEMALE GENITOURINARY: Denies vaginal bleeding, heavy or abnormal periods, irregular periods. Denies vaginal discharge or odor. MUSCULOSKELETAL: Denies back or neck pain or stiffness. Denies joint pain or swelling. SKIN: Denies rash, lesions or sores. HEMATOLOGIC : Denies easy bruising or bleeding. LYMPHATIC: Denies swollen, enlarged glands. NEUROLOGICAL: Denies confusion or altered mental status. Denies passing out or loss of consciousness. Denies dizziness or lightheadedness. Denies headache. Denies weakness or paralysis or loss of use of either side. Denies problems with gait or speech. Denies sensory loss, numbness, or tingling. Denies seizures. PSYCHIATRIC: Denies anxiety or stress. Denies depression, suicidal ideation, or homicidal ideation. ALL OTHER SYSTEMS REVIEWED AND NEGATIVE. PHYSICAL EXAMINATION: GENERAL: Well-appearing, well-nourished and in no acute distress. HEAD: Atraumatic, normocephalic. EYES: Pupils equal round and reactive to light, extraocular movements intact, conjunctiva are normal. ENT: Nares patent, oropharynx clear without exudates. Moist mucous membranes. NECK: Normal range of motion, supple without lymphadenopathy LUNGS: Breath sounds clear to auscultation bilaterally and equal. No wheezes rales or rhonchi. HEART: Regular rate and rhythm without murmurs ABDOMEN: Soft, nontender, nondistended abdomen. No guarding, no rebound. No masses appreciated. Examination of genitals-deferred Musculoskeletal: Normal range of motion, no pitting or edema. No cyanosis. NEUROLOGICAL: Cranial nerves grossly intact. Normal speech, normal gait. Normal sensory, motor exams PSYCH: Normal mood, normal affect. SKIN: Warm, Dry, normal turgor, no rashes or lesions noted. Dictation was performed using [employer] voice recognition software TRAVEL OUTSIDE OF THE [place] IN LAST 30 DAYS: No - HPI Notes: Dictated - Related Data Allergies/Adverse Reactions: No Known Allergies Allergy (Verified 05/01/18 16:09) Past Medical History - Social History Smoking Status: Never Smoker Frequency of alcohol use: None Drug Abuse: None Lives with: Family Family History: Reviewed & Not Pertinent Patient has suicidal ideation: No Patient has homicidal ideation: No Renal/ Medical History: Denies: Hx Peritoneal Dialysis - Immunizations Immunizations up to date: Yes Hx Diphtheria, Pertussis, Tetanus Vaccination: Yes Review of Systems - Review of Systems Notes: Dictated Physical Exam - Vital signs Vitals: Temp Pulse Resp BP Pulse Ox 100.6 F H 62 20 103/58 L 100 05/01/18 16:08 05/01/18 16:08 05/01/18 16:08 05/01/18 16:08 05/01/18 16:08 - Notes Notes: Dictated Course - Re-evaluation Re-evalutation: 05/01/18 18:19 Influenza test came back negative - Vital Signs Vital signs: Temp Pulse Resp BP Pulse Ox 100.6 F H 62 20 103/58 L 100 05/01/18 16:08 05/01/18 16:08 05/01/18 16:08 05/01/18 16:08 05/01/18 16:08 Discharge - Discharge Clinical Impression: Viral syndrome Condition: Fair Disposition: HOME, SELF-CARE Instructions: Viral Syndrome ([facility]) Referrals: MISAEL BORJA MD [Primary Care Provider] - Follow up as needed
[2018-05-01] MEDS ORDERED: IBUPROFEN 600 MG TABLET PO ONE (18:46)
[2018-05-01 19:01] VITALS: BP 107/56
== END 2018-05-01 18:56 | disposition home or self-care (01) ==
LOC: ER 15:45
DX: B34.9 Viral infection, unspecified (principal); R52 Pain, unspecified
CPT/HCPCS: 99283; 87804; J3490

== ENCOUNTER 2018-06-09 18:04 | Emergency (ER) | payer MEDICAID ==
[2018-06-09] MEDS ORDERED: DIPH/PERTUSS(ACELL)/TETANUS VAC/PF 0.5 ML SYR (>=10YO) IM ONE (18:20)
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
[2018-06-09] MEDS ORDERED: ACETAMINOPHEN WITH CODEINE #3 TABLET PO ONE (19:34)
[2018-06-09] MEDS ORDERED: SILVER SULFADIAZINE 1% CREAM 25 GM TP ONE (19:38)
[2018-06-09 20:35] VITALS: BP 100/60
== END 2018-06-09 20:35 | disposition home or self-care (01) ==
LOC: ER 18:04
DX: T23.272A Burn of second degree of left wrist, initial encounter (principal); X10.2XXA Contact with fats and cooking oils, initial encounter
CPT/HCPCS: 99283; 90715; J3490